=== PATIENT | female | born 1965 | race Caucasian/White ===

== ENCOUNTER 2017-03-11 17:49 | Inpatient (IN) | payer SELFPAY ==
[~2017-03-11] VITALS: Ht 165.1 cm; Wt 58.3 kg
[2017-03-11] MEDS ORDERED: SODIUM CHLORIDE 0.9% 1,000 ML IV ONE (21:05)
[2017-03-11 21:38] LABS: BASOPHILS % 0.4 % (0.0-2.0); EOSINOPHILS % 0.1 % (0.0-5.0); HEMATOCRIT. 43.8 % (36.0-48.0); HEMOGLOBIN. 14.7 g/dL (12.0-16.0); LYMPHOCYTES % 19.5 % (20.0-50.0); MEAN CORPUSCULAR HEMOGLOBIN 31.1 pg (28.0-32.0); MEAN PLATELET VOLUME 10.1 fl (7.4-10.4); MONOCYTES % 5.2 % (2.0-8.0); NEUTROPHILS % 74.8 % (40.0-76.0); PLATELET 233 x1000/uL (130-400); RED BLOOD CELL COUNT 4.71 mill/uL (4.2-5.4); RED CELL DISTRIBUTION WIDTH 13.4 % (11.6-14.6)
[2017-03-11 21:39] LABS: *AMPHETAMINES SCREEN URINE NEGATIVE (NEGATIVE); *BARBITURATES SCREEN URINE NEGATIVE (NEGATIVE); *BENZODIAZEPINES SCREEN URINE NEGATIVE (NEGATIVE); *COCAINE SCREEN URINE NEGATIVE (NEGATIVE); CANNABINOID URINE SCREEN NEGATIVE (NEGATIVE); METHADONE URINE SCREEN NEGATIVE (NEGATIVE); OPIATES URINE SCREEN NEGATIVE (NEGATIVE); PHENCYCLIDINE URINE SCREEN NEGATIVE (NEGATIVE)
[2017-03-11 21:41] LABS: CHLORIDE 107 mEq/L (98-107)
[2017-03-11 21:49] LABS: CARBON DIOXIDE 24 mEq/L (21-32); ETHANOL BLOOD < 10 mg/dL
[2017-03-11] MEDS ORDERED: SODIUM CHLORIDE 0.9% 1,000 ML IV SCH (22:23)
[2017-03-11 23:15] VITALS: BP 102/66
[2017-03-12 00:51] VITALS: BP 102/66
[2017-03-12 04:00] VITALS: BP 112/71
[2017-03-12] MEDS ORDERED: MAGNESIUM/ALUMINUM HYDROXIDE/SIMETHICONE 30ML UDC PO PRN (06:00)
[2017-03-12] MEDS ORDERED: NA PHOS,M-B/NA PHOS,DI-BA ENEMA 118ML PR PRN (06:00)
[2017-03-12] MEDS ORDERED: ONDANSETRON HCL 4MG/2ML VIAL IV PRN (06:00)
[2017-03-12] MEDS ORDERED: HYDROCODONE/ACETAMINOPHEN 5/325MG TABLET PO PRN (06:00)
[2017-03-12] MEDS ORDERED: GUAIFENESIN 200MG/10ML SUGAR FREE UDC PO PRN (06:00)
[2017-03-12] MEDS ORDERED: CLONIDINE 0.1MG TABLET PO PRN (06:00)
[2017-03-12] MEDS ORDERED: IPRATROPIUM/ALBUTEROL 0.5-3(2.5)MG/3ML NEB INH PRN (06:00)
[2017-03-12] MEDS ORDERED: DIPHENHYDRAMINE 50MG/ML VIAL IV PRN (06:00)
[2017-03-12] MEDS ORDERED: HYDROMORPHONE HCL/PF 2MG/ML CPJ IV PRN (06:00)
[2017-03-12] MEDS ORDERED: LORAZEPAM 0.5MG TABLET PO PRN (06:00)
[2017-03-12] MEDS ORDERED: DOCUSATE SODIUM 100MG CAPSULE PO PRN (06:00)
[2017-03-12 08:00] VITALS: BP 108/63
[2017-03-12] MEDS: ACETAMINOPHEN 325MG TABLET PO PRN ×2 (09:35→17:40)
[2017-03-12] MEDS: ASPIRIN 81MG EC TABLET PO SCH (09:35)
[2017-03-12] MEDS: ENOXAPARIN 40MG/0.4ML SYR SUBCUT SCH (09:36)
[2017-03-12 09:50] LABS: CARBON DIOXIDE 21 mEq/L (21-32); CHLORIDE 112 mEq/L (98-107); TROPONIN I < 0.02 ng/mL (0.00-0.04)
[2017-03-12] MEDS: SODIUM CHLORIDE 0.45% 1,000 ML IV SCH (11:21)
[2017-03-12 12:00] VITALS: BP 117/70
[2017-03-12 16:00] VITALS: BP_SYST 103; BP_SYST 107; BP_SYST 119; BP_DIAS 66; BP_DIAS 71; BP_DIAS 74
[2017-03-12 20:00] VITALS: BP_SYST 101; BP_SYST 91; BP_SYST 99; BP_DIAS 45; BP_DIAS 64; BP_DIAS 69
[2017-03-13] VITALS: BP 101/53
[2017-03-13] MEDS: SODIUM CHLORIDE 0.45% 1,000 ML IV SCH ×2 (00:20→09:40)
[2017-03-13 04:00] VITALS: BP 100/54
[2017-03-13 06:30] LABS: BASOPHILS % 0.5 % (0.0-2.0); EOSINOPHILS % 1.3 % (0.0-5.0); HEMATOCRIT. 40.1 % (36.0-48.0); HEMOGLOBIN. 13.5 g/dL (12.0-16.0); LYMPHOCYTES % 32.7 % (20.0-50.0); MEAN CORPUSCULAR HEMOGLOBIN 31.6 pg (28.0-32.0); MEAN CORPUSCULAR VOLUME 94.2 fL (81.0-99.0); MEAN PLATELET VOLUME 10.6 fl (7.4-10.4); MONOCYTES % 9.3 % (2.0-8.0); NEUTROPHILS % 56.2 % (40.0-76.0); PLATELET 213 x1000/uL (130-400); RED BLOOD CELL COUNT 4.25 mill/uL (4.2-5.4); RED CELL DISTRIBUTION WIDTH 13.9 % (11.6-14.6)
[2017-03-13 08:17] VITALS: BP 98/59
[2017-03-13] MEDS: ENOXAPARIN 40MG/0.4ML SYR SUBCUT SCH (09:00)
[2017-03-13] MEDS: ASPIRIN 81MG EC TABLET PO SCH (09:00)
[2017-03-13 09:24] LABS: CHLORIDE 111 mEq/L (98-107)
[2017-03-13 09:38] LABS: CARBON DIOXIDE 21 mEq/L (21-32); HDL CHOLESTEROL 83 mg/dL (40-59); LDL CHOLESTEROL 58 mg/dL (5-100); T4 FREE 1.06 ng/dL (0.76-1.46)
== END 2017-03-13 10:40 | disposition home or self-care (01) | DRG 52 ==
LOC: ER 18:33 → 5WST 22:24 → EDBEDREQ 22:30 → ENRESERV 23:33 → 5WST 03-12 00:35
PROVIDERS: ADMIT Internal Medicine; ATTEND Internal Medicine
DX: G93.41 Metabolic encephalopathy (principal); I10 Essential (primary) hypertension; E86.0 Dehydration
CPT/HCPCS: 36415; 70450; 71010; 80048; 80053; 80061; 80305; 80307; 80329; 82962; 84439; 84443; 84484; 85025; 93005; 96360; 96361; 99285; G0482; J1650; J7030